=== PATIENT | female | born 1955 | race Caucasian/White ===

== ENCOUNTER 2017-11-22 19:00 | Emergency (ER) | payer BC ==
[2017-11-22 19:42] VITALS: BP 115/70; PULSE 109; RESP 18; TEMP 100.3; O2SAT 96
[2017-11-22 20:51] VITALS: TEMP 100
[2017-11-22] MEDS ORDERED: cholesterol med (20:51)
[2017-11-22] MEDS ORDERED: SODIUM CHLOR 0.9% 1000 ML INJ 700 ML IV ONE (20:56)
[2017-11-22] MEDS ORDERED: SODIUM CHLOR 0.9% 1000 ML INJ 1,000 ML IV ONE ×2 (20:56)
[2017-11-22] MEDS ORDERED: diphenhydrAMINE HCL 50 MG/ML VIAL IV PUSH ONE (21:00)
[2017-11-22] MEDS ORDERED: PROCHLORPERAZINE INJ 10 MG/2 ML VIAL IV PUSH ONE (21:00)
[2017-11-22] MEDS ORDERED: KETOROLAC TROMETHAMINE 30 MG/ML (IVP) VIAL IV PUSH ONE (21:00)
--- NOTE | 2017-11-22 21:07 | PD ---
HPI Chief Complaint: Skin Problem Time Seen by Provider: 20:49 Travel History International Travel<30 days: No Contact w/Intl Traveler<30days: No Traveled to known affect area: No History of Present Illness HPI 62-year-old female presents to the emergency department for evaluation of cellulitis to her left lower extremity. Patient states she has a history of cellulitis to her leg. She states that she feels like she normally does when she has cellulitis. She reports headache which is no different from her typical headaches. Patient reports erythema and warmth to the left lower extremity. Patient denies any neck pain. No chest pain. No shortness of breath. No cough or congestion. No abdominal pain. No nausea, vomiting, diarrhea. She reports history of hyperlipidemia and takes an unknown cholesterol medication. She takes no other medications. She is here on vacation from [place]. She states that normally her primary care physician will call her in a prescription for an antibiotic when she has this issue, but could not do this because she is out of town. She states her symptoms started this morning. She states that normally they will treat her headache with a pain medication and nausea medication give her antibiotics for her cellulitis. She states normally she does very well with this. She states this is her typical presentation. Current pain is 7/10, aching and throbbing, no radiation. Moderate severity. PFSH Past Medical History High Cholesterol: Yes Social History Alcohol Use: Yes (occ.) Tobacco Use: No (20 yrs ago) Substance Use: No Allergies-Medications (Allergen,Severity, Reaction): Coded Allergies: No Known Allergies (Unverified , 11/22/17) Reported Meds & Prescriptions Reported Meds & Active Scripts Active Reported [cholesterol med] Review of Systems Except as stated in HPI: all other systems reviewed are Neg Physical Exam Narrative GENERAL: Well-nourished, well-developed female patient, temp of 100.3 in triage. SKIN: Focused skin assessment warm/dry. Patient has mild erythema and warmth to the left lower extremity. No edema. HEAD: Normocephalic. Atraumatic. ENT: Mucosa pink and moist. No erythema or exudates. No uvular edema. No uvular , palatal, or tonsillar deviation. Airway patent. Nasal turbinates appear normal without nasal blood, purulent drainage or septal hematoma. Bilateral tympanic membranes clear without erythema or perforation. EYES: No scleral icterus. No injection or drainage. NECK: Supple, trachea midline. No JVD or lymphadenopathy. CARDIOVASCULAR: Regular rate and rhythm without murmurs, gallops, or rubs. Bilateral radial and pedal pulses 2+ RESPIRATORY: Breath sounds equal bilaterally. No accessory muscle use. Lung sounds are clear to auscultation. GASTROINTESTINAL: Abdomen soft, non-tender, nondistended. MUSCULOSKELETAL: No cyanosis, or edema. BACK: Nontender without obvious deformity. No CVA tenderness. Data Data Last Documented VS Vital Signs Date Time Temp Pulse Resp B/P (MAP) Pulse Ox O2 Delivery O2 Flow Rate FiO2 11/22/17 21:26 95 Room Air 11/22/17 20:51 100.0 11/22/17 19:42 109 18 115/70 (85) Orders Orders Sepsis Workup Initiated (11/22/17 ) Complete Blood Count With Diff (11/22/17 20:56) Comprehensive Metabolic Panel (11/22/17 20:56) Lactic Acid Sepsis Protocol (11/22/17 20:56) Urinalysis - C+S If Indicated (11/22/17 20:56) Influenzae A/B Antigen (11/22/17 20:56) Blood Culture (11/22/17 20:56) Chest, Single Ap (11/22/17 20:56) Blood Glucose (11/22/17 20:56) Ecg Monitoring (11/22/17 20:56) Iv Access Insert/Monitor (11/22/17 20:56) Oximetry (11/22/17 20:56) Oxygen Administration (11/22/17 20:56) Sodium Chlor 0.9% 1000 Ml Inj (Ns 1000 M (11/22/17 20:56) Sodium Chlor 0.9% 1000 Ml Inj (Ns 1000 M (11/22/17 20:56) Sodium Chlor 0.9% 1000 Ml Inj (Ns 1000 M (11/22/17 20:56) Ketorolac Inj (Toradol Inj) (11/22/17 21:00) Diphenhydramine Inj (Benadryl Inj) (11/22/17 21:00) Prochlorperazine Inj (Compazine Inj) (11/22/17 21:00) Sulfamet-Trimeth Ds 800-160 Mg (Bactrim (11/22/17 22:45) Cephalexin (Keflex) (11/22/17 22:45) Labs Laboratory Tests Test 11/22/17 21:15 11/22/17 22:08 White Blood Count 13.2 TH/MM3 Red Blood Count 4.45 MIL/MM3 Hemoglobin 13.5 GM/DL Hematocrit 39.7 % Mean Corpuscular Volume 89.1 FL Mean Corpuscular Hemoglobin 30.3 PG Mean Corpuscular Hemoglobin Concent 34.0 % Red Cell Distribution Width 13.3 % Platelet Count 180 TH/MM3 Mean Platelet Volume 9.5 FL Neutrophils (%) (Auto) 89.6 % Lymphocytes (%) (Auto) 4.4 % Monocytes (%) (Auto) 5.7 % Eosinophils (%) (Auto) 0.0 % Basophils (%) (Auto) 0.3 % Neutrophils # (Auto) 11.9 TH/MM3 Lymphocytes # (Auto) 0.6 TH/MM3 Monocytes # (Auto) 0.8 TH/MM3 Eosinophils # (Auto) 0.0 TH/MM3 Basophils # (Auto) 0.0 TH/MM3 CBC Comment DIFF FINAL Differential Comment Blood Urea Nitrogen 12 MG/DL Creatinine 1.00 MG/DL Random Glucose 114 MG/DL Total Protein 7.4 GM/DL Albumin 3.7 GM/DL Calcium Level 8.8 MG/DL Alkaline Phosphatase 96 U/L Aspartate Amino Transf (AST/SGOT) 23 U/L Alanine Aminotransferase (ALT/SGPT) 29 U/L Total Bilirubin 1.1 MG/DL Sodium Level 138 MEQ/L Potassium Level 3.7 MEQ/L Chloride Level 103 MEQ/L Carbon Dioxide Level 24.3 MEQ/L Anion Gap 11 MEQ/L Estimat Glomerular Filtration Rate 56 ML/MIN Lactic Acid Level 1.4 mmol/L Urine Color LIGHT-YELLOW Urine Turbidity CLEAR Urine pH 6.5 Urine Specific [place] 1.013 Urine Protein NEG mg/dL Urine Glucose (UA) NEG mg/dL Urine Ketones NEG mg/dL Urine Occult Blood NEG Urine Nitrite NEG Urine Bilirubin NEG Urine Urobilinogen LESS THAN 2.0 MG/DL Urine Leukocyte Esterase SMALL Urine WBC 5 /hpf Urine Squamous Epithelial Cells 1 /hpf Urine Mucus FEW /lpf Microscopic Urinalysis Comment CATH-CULT NOT IND MDM Medical Decision Making Medical Screen Exam Complete: Yes Emergency Medical Condition: Yes Medical Record Reviewed: Yes Interpretation(s) Last Impressions Chest X-Ray 11/22/172055 Signed Impressions: Service Date/Time: Wednesday, November 22, 2017 21:02 - CONCLUSION: No acute disease. Yosi Ortiz MD Differential Diagnosis Cellulitis versus sepsis versus pneumonia versus UTI Narrative Course 62-year-old female presents to the emergency department for evaluation of cellulitis to her left lower extremity. She states that this is her typical presentation when she has cellulitis. She states her last episode was 6 months ago and was a similar to this 1. On exam, she has mild erythema and warmth left lower extremity. IV access obtained. CBC, CMP, lactic acid, influenza, urinalysis, blood cultures 2, chest x-ray are ordered and pending. Patient is given normal saline 30 mL/kg per sepsis protocol. She is given Toradol 30 mg IV , Benadryl 25 mg IV, Compazine 10 mg IV for headache. CBC shows leukocytosis of 13.2. CMP shows no acute abnormality. Lactic acid is 1.4. UA is negative for UTI. Influenza is negative. Chest x-ray shows no acute disease. Labs are reassuring. Upon reassessment, patient states she feels much better and would like to go home. She will be discharged with prescription for Bactrim and Keflex. She is given her first dose here. She is instructed to return for any acute worsening of symptoms. She verbalizes agreement. The patient was discharged in stable condition with instructions, including return instructions and follow up instructions. Diagnosis Primary Impression: Cellulitis Qualified Codes: L03.116 - Cellulitis of left lower limb Referrals: Primary Care Physician call for appointment Patient Instructions: Cellulitis (ED), General Instructions Additional Instructions: Take antibiotics as directed until gone Follow-up with a primary care physician. Return to the emergency department for any acute worsening of symptoms. Med/Other Pt SpecificInfo: Prescription(s) given Scripts Cephalexin (Keflex) 500 Mg Capsule 500 MG PO Q6H for Infection for 10 Days, #40 CAP 0 Refills Prov: Mansi Baugh 11/22/17 Sulfamethoxazole-Trimethoprim (Bactrim DS) 800-160 Mg Tab 1 TAB PO BID for Infection, #20 TAB 0 Refills Prov: Mansi Baugh 11/22/17 Disposition: DISCHARGE HOME Condition: Stable Mansi Baugh November 22, 2017 21:06
[2017-11-22 21:26] VITALS: O2SAT 95
[2017-11-22 21:31] LABS: AUTOMATED NEUTROPHIL # 11.9 TH/MM3 (1.8-7.7); BASOPHIL % 0.3 % (0.0-2.0); HEMATOCRIT 39.7 % (35.0-46.0); HEMOGLOBIN 13.5 GM/DL (11.6-15.3); LYMPH % 4.4 % (9.0-44.0); LYMPHOCYTE # 0.6 TH/MM3 (1.0-4.8); MEAN CELL VOLUME 89.1 FL (80.0-100.0); MEAN CORPUSCULAR HEMOGLOBIN 30.3 PG (27.0-34.0); MEAN PLATELET VOLUME 9.5 FL (7.0-11.0); MONO % 5.7 % (0.0-8.0); MONOCYTE # 0.8 TH/MM3 (0-0.9); NEUT % 89.6 % (16.0-70.0); PLATELET COUNT 180 TH/MM3 (150-450); RED BLOOD COUNT 4.45 MIL/MM3 (4.00-5.30); RED CELL DISTRIBUTION WIDTH 13.3 % (11.6-17.2); WHITE BLOOD COUNT 13.2 TH/MM3 (4.0-11.0)
[2017-11-22 21:45] LABS: ALBUMIN 3.7 GM/DL (3.4-5.0); AST (GOT) 23 U/L (15-37); BICARBONATE 24.3 MEQ/L (21.0-32.0); BLOOD UREA NITROGEN 12 MG/DL (7-18); CALCIUM 8.8 MG/DL (8.5-10.1); CHLORIDE 103 MEQ/L (98-107); GLOMERULAR FILTRATION RATE 56 ML/MIN (>89); GLUCOSE,RANDOM 114 MG/DL (74-106); SODIUM (NA) 138 MEQ/L (136-145)
[2017-11-22 21:46] LABS: ALT (GPT) 29 U/L (10-53)
--- NOTE | 2017-11-22 21:47 | RADRPT ---
EXAM DATE/TIME: 11/22/2017 21:02 [facility] COMPARISON: No previous studies available for comparison. INDICATIONS : Fever. MEDICAL HISTORY : None. SURGICAL HISTORY : None. ENCOUNTER: Initial ACUITY: 2 days PAIN SCORE: 0/10 LOCATION: chest FINDINGS: A single view of the chest demonstrates the lungs to be symmetrically aerated without evidence of mas s, infiltrate or effusion. The cardiomediastinal contours are unremarkable. Osseous structures are intact. CONCLUSION: No acute disease. Yosi Ortiz MD on November 22, 2017 at 21:45 Board Certified Radiologist. This report was verified electronically.
[2017-11-22 21:48] LABS: ALKALINE PHOSPHATASE 96 U/L (45-117); TOTAL BILIRUBIN ADULT 1.1 MG/DL (0.2-1.0); TOTAL PROTEIN 7.4 GM/DL (6.4-8.2)
[2017-11-22 22:23] LABS: BILIRUBIN, URINE NEG (NEG); BLOOD, URINE NEG (NEG); GLUCOSE,URINE NEG (NEG); KETONE, URINE NEG (NEG); MUCUS URINE FEW /lpf (OCC); NITRITE,URINE NEG (NEG); PH, URINE 6.5 (5.0-8.5); SQUAMOUS EPITHELIAL CELL URINE 1 /hpf (0-5); URINE COLOR LIGHT-YELLOW (YELLW/STRAW); URINE LEUKOCYTE ESTERASE SMALL (NEG)
[2017-11-22 22:33] VITALS: BP 132/75; PULSE 89; RESP 16; O2SAT 95
[2017-11-22] MEDS ORDERED: BACT800T5 PO (22:34)
[2017-11-22] MEDS ORDERED: CEPH-460 PO (22:34)
[2017-11-22] MEDS ORDERED: SULFAMETHOXAZOLE-TRIMETHOPRIM DS 800-160 MG TAB PO ONE (22:45)
[2017-11-22] MEDS ORDERED: CEPHALEXIN MONOHYDRATE 500 MG CAP PO ONE (22:45)
== END 2017-11-22 22:50 | disposition home or self-care (01) ==
LOC: NEPC 19:00
DX: L03.116 Cellulitis of left lower limb (principal); E78.00 Pure hypercholesterolemia, unspecified
CPT/HCPCS: 71045; 80053; 81001; 83605; 85025; 87040; 87804; 96361; 96374; 96375; 99284; J0780; J1200; J1885; J7030